=== PATIENT | male | born 2000 | race Caucasian/White ===

== ENCOUNTER 2025-03-15 12:43 | Emergency (ER) | payer OTHER, SELFPAY ==
[2025-03-15 13:11] VITALS: BP 138/86
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
[2025-03-15] MEDS: ADACEL 0.5 ML IM (16:37)
[2025-03-15] MEDS: KEFLEX 500 MG PO (16:38)
[2025-03-15 16:50] VITALS: BP 116/72
--- NOTE | 2025-03-15 16:50 | EDRN ---
Reviewed discharge instructions with patient. Verbalized understanding. Ambulated with steady gait to the lobby.
== END 2025-03-15 16:40 | disposition home or self-care (01) ==
LOC: EMR 12:43
PROVIDERS: EMERGENCY PHYSICIAN Emergency Medicine; FAMILY PHYSICIAN Family Medicine
DX: S81.811A Laceration without foreign body, right lower leg, initial encounter (principal); S41.112A Laceration without foreign body of left upper arm, initial encounter; S41.111A Laceration without foreign body of right upper arm, initial encounter; S21.119A Laceration without foreign body of unspecified front wall of thorax without penetration into thoracic cavity, initial encounter; X99.9XXA Assault by unspecified sharp object, initial encounter; Z23 Encounter for immunization
CPT/HCPCS: 90471; 12004; 99282; 90715